=== PATIENT | female | born 1990 | race Caucasian/White ===

== ENCOUNTER 2020-04-22 18:44 | Emergency (ER) | payer MEDICAID ==
[2020-04-22] MEDS ORDERED: LORazepam 2 MG/ML SDV IVPUSH ONE ×3 (18:47→19:15)
[2020-04-22] MEDS ORDERED: Sodium Chloride 0.9% 1,000 ML IV ONE (18:48)
[2020-04-22] MEDS ORDERED: LORazepam 2 MG/ML SDV ONE ×2 (18:49→19:04)
--- NOTE | 2020-04-22 18:52 | EDM.PDOC ---
ED HPI GENERAL MEDICAL PROBLEM - General Stated Complaint: MEDICAL VIA [facility] Time Seen by Provider: 04/22/20 18:46 Source of Information: Reports: EMS History Limitations: Reports: Altered Mental Status - History of Present Illness INITIAL COMMENTS - FREE TEXT/NARRATIVE: Patient is brought by paramedics after her family reported witnessing generalized seizure activity today while they were vacationing in [facility]. They were out on a bicycle ride when the family noticed seizure activity. 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 She is on medication for seizures but we do not know what it is. Initially she was calm and composed but then became quite agitated and was given a total of 5 mg of midazolam IM approximately 1815 hrs. She is continued to have thrashing activity and nonsensical speech. Family is not here yet to provide additional history. Family member eventually arrived and the patient has been diagnosed with kellogg matter heterotopia. She is followed by [facility] in [place]. Medication list indicates that she is supposed to be taking 1500 mg of levetiracetam twice a day. Family members uncertain if she badillo s been taking meds. Onset: Today, Sudden - Related Data Allergies Allergy/AdvReac Type Severity Reaction Status Date / Time No Known Allergies Allergy Verified 04/22/20 18:49 Home Meds: Home Meds levETIRAcetam [Keppra Xr] 1,500 mg PO BID 04/22/20 [History] ED ROS GENERAL - Review of Systems Review Of Systems: Unable To Obtain Reason Not Obtained: Patient's agitated mental status and lack of corroborative family - Physical Exam Exam: See Below Exam Limited By: Altered Mental Status General Appearance: Moderate Distress Course - Vital Signs Last Recorded V/S: Last Vital Signs Temp 36.1 C 04/22/20 19:05 Pulse 75 04/22/20 22:55 Resp 17 04/22/20 22:55 BP 82/37 L 04/22/20 22:55 Pulse Ox 97 04/22/20 22:55 - Orders/Labs/Meds Labs: Laboratory Tests 04/22/20 04/22/20 04/22/20 Range/Units 19:14 19:14 20:28 WBC 14.0 H (4.5-11.0) K/uL RBC 4.33 (3.30-5.50) M/uL Hgb 12.9 (12.0-15.0) g/dL Hct 37.6 (36.0-48.0) % MCV 87 (80-98) fL MCH 30 (27-31) pg MCHC 34 (32-36) % Plt Count 212 (150-400) K/uL Neut % (Auto) 89 H (36-66) % Lymph % (Auto) 5 L (24-44) % Randolph % (Auto) 6 (2-6) % Eos % (Auto) 0 L (2-4) % Baso % (Auto) 0 (0-1) % Sodium 139 L (140-148) mmol/L Potassium 3.9 (3.6-5.2) mmol/L Chloride 105 (100-108) mmol/L Carbon Dioxide 25 (21-32) mmol/L Anion Gap 12.9 (5.0-14.0) mmol/L BUN 9 (7-18) mg/dL Creatinine 0.9 (0.6-1.0) mg/dL Est Cr Clr Drug Dosing 88.36 mL/min Estimated GFR (MDRD) > 60 (>60) Glucose 96 (74-106) mg/dL Calcium 7.9 L (8.5-10.1) mg/dL Total Bilirubin 0.4 (0.2-1.0) mg/dL AST 26 (15-37) U/L ALT 30 (12-78) U/L Alkaline Phosphatase 67 (46-116) U/L C-Reactive Protein 0.16 (0.0-0.3) mg/dL Total Protein 6.5 (6.4-8.2) g/dL Albumin 3.6 (3.4-5.0) g/dL Globulin 2.9 (2.3-3.5) g/dL Albumin/Globulin Ratio 1.2 (1.2-2.2) Urine Color Yellow (YELLOW) Urine Appearance Clear (CLEAR) Urine pH 5.5 (5.0-8.0) Ur Specific Willis 1.025 (1.008-1.030) Urine Protein 30 H (NEGATIVE) mg/dL Urine Glucose (UA) Negative (NEGATIVE) mg/dL Urine Ketones Negative (NEGATIVE) mg/dL Urine Occult Blood Small H (NEGATIVE) Urine Nitrite Negative (NEGATIVE) Urine Bilirubin Negative (NEGATIVE) Urine Urobilinogen 0.2 (0.2-1.0) EU/dL Ur Leukocyte Esterase Negative (NEGATIVE) Urine RBC 0-5 (0-5) Urine WBC 0-5 (0-5) Ur Epithelial Cells Few Amorphous Sediment Not seen Urine Bacteria Moderate Urine Mucus Not seen Urine Opiates Screen (NEGATIVE) Ur Oxycodone Screen (NEGATIVE) Urine Methadone Screen (NEGATIVE) Ur Propoxyphene Screen (NEGATIVE) Ur Barbiturates Screen (NEGATIVE) Ur Tricyclics Screen (NEGATIVE) Ur Phencyclidine Scrn (NEGATIVE) Ur Amphetamine Screen (NEGATIVE) U Methamphetamines Scrn (NEGATIVE) Urine MDMA Screen (NEGATIVE) U Benzodiazepines Scrn (NEGATIVE) U Cocaine Metab Screen (NEGATIVE) U Marijuana (THC) Screen (NEGATIVE) 04/22/20 Range/Units 20:28 WBC (4.5-11.0) K/uL RBC (3.30-5.50) M/uL Hgb (12.0-15.0) g/dL Hct (36.0-48.0) % MCV (80-98) fL MCH (27-31) pg MCHC (32-36) % Plt Count (150-400) K/uL Neut % (Auto) (36-66) % Lymph % (Auto) (24-44) % Randolph % (Auto) (2-6) % Eos % (Auto) (2-4) % Baso % (Auto) (0-1) % Sodium (140-148) mmol/L Potassium (3.6-5.2) mmol/L Chloride (100-108) mmol/L Carbon Dioxide (21-32) mmol/L Anion Gap (5.0-14.0) mmol/L BUN (7-18) mg/dL Creatinine (0.6-1.0) mg/dL Est Cr Clr Drug Dosing mL/min Estimated GFR (MDRD) (>60) Glucose (74-106) mg/dL Calcium (8.5-10.1) mg/dL Total Bilirubin (0.2-1.0) mg/dL AST (15-37) U/L ALT (12-78) U/L Alkaline Phosphatase (46-116) U/L C-Reactive Protein (0.0-0.3) mg/dL Total Protein (6.4-8.2) g/dL Albumin (3.4-5.0) g/dL Globulin (2.3-3.5) g/dL Albumin/Globulin Ratio (1.2-2.2) Urine Color (YELLOW) Urine Appearance (CLEAR) Urine pH (5.0-8.0) Ur Specific Willis (1.008-1.030) Urine Protein (NEGATIVE) mg/dL Urine Glucose (UA) (NEGATIVE) mg/dL Urine Ketones (NEGATIVE) mg/dL Urine Occult Blood (NEGATIVE) Urine Nitrite (NEGATIVE) Urine Bilirubin (NEGATIVE) Urine Urobilinogen (0.2-1.0) EU/dL Ur Leukocyte Esterase (NEGATIVE) Urine RBC (0-5) Urine WBC (0-5) Ur Epithelial Cells Amorphous Sediment Urine Bacteria Urine Mucus Urine Opiates Screen Negative (NEGATIVE) Ur Oxycodone Screen Negative (NEGATIVE) Urine Methadone Screen Negative (NEGATIVE) Ur Propoxyphene Screen Negative (NEGATIVE) Ur Barbiturates Screen Negative (NEGATIVE) Ur Tricyclics Screen Negative (NEGATIVE) Ur Phencyclidine Scrn Negative (NEGATIVE) Ur Amphetamine Screen Negative (NEGATIVE) U Methamphetamines Scrn Negative (NEGATIVE) Urine MDMA Screen Negative (NEGATIVE) U Benzodiazepines Scrn Presumptive positive H (NEGATIVE) U Cocaine Metab Screen Negative (NEGATIVE) U Marijuana (THC) Screen Negative (NEGATIVE) Meds: Medications Discontinued Medications Generic Name Dose Route Start Last Admin Trade Name Ambrose PRN Reason Stop Dose Admin Sodium Chloride 1,000 mls @ 999 mls/hr 04/22/20 18:48 04/22/20 18:53 Normal Saline IV 04/22/20 19:48 999 mls/hr .BOLUS ONE Administration Levetiracetam 1,500 mg/ Sodium 115 mls @ 400 mls/hr 04/22/20 19:24 04/22/20 19:44 Chloride IV 04/22/20 19:38 400 mls/hr ONETIME ONE Administration Lorazepam 1 mg 04/22/20 18:47 04/22/20 18:51 Ativan IVPUSH 04/22/20 18:48 1 mg ONETIME ONE Administration Lorazepam 1 mg 04/22/20 19:02 04/22/20 19:10 Ativan IVPUSH 04/22/20 19:03 1 mg ONETIME ONE Administration Lorazepam 1 mg 04/22/20 19:15 04/22/20 19:51 Ativan IVPUSH 04/22/20 19:16 1 mg ONETIME ONE Administration - Re-Assessments/Exams Free Text/Narrative Re-Assessment/Exam: She is still quite vigorous and fighting with staff. Soft restraints were applied to arms and legs. Lorazepam 1 mg IV will be given. 04/22/20 18:54 04/22/20 19:31 Patient received a total of 3 mg of lorazepam IV as separate 1 mg doses since arrival here. She continues to cry out and occasionally tried to sit up. There is a family member here who is familiar with her condition. When the patient was asked if she is taking medication, she said no but family member states that her memory is very short-term and she may not remember whether or not she has done activity or not. She is followed by neurology at [facility] in [place]. According to family notes, she is supposed to be taking 1500 mg of Keppra twice daily. I will give her a 1500 mg IV loading dose. I will contact them to see if we can get some additional guidance on her situation and specific condition. 04/22/20 19:33 04/22/20 20:47 204 7 hours, patient is now sleeping comfortably with no further thrashing about or seizure-like activity. Assuming nothing else happens, plan would be to discharge the patient to resume usual medications as prescribed, meaning levetiracetam twice a day. Nursing staff returned later to check on the patient and she was oriented and asking questions about other family members. 04/23/20 06:01 The patient had blood pressure in the 80s systolic range and received fluid boluses. Nursing staff gradually saw pressure increased into the 90s. Patient's father came and went from the room throughout her stay. When he returned again, I told him that once she was stable on her feet that we would be discharging her home. He does not know if she takes her levetiracetam regularly. Although we loaded her with 1500 mg, if it has been sometime since taking the medication, she probably should start at 500 twice daily and go up in dose every 5 or 6 days. She should contact [place] neurology next week to arrange a follow-up appointment. When awakened again, she was much more alert and her usual self per her father. She was assisted to his vehicle in a wheelchair but was back to her normal mental status and significantly more composed than her initial arrival. Departure - Departure Time of Disposition: 01:16 Disposition: Home, Self-Care 01 Clinical Impression: Seizure, Kellogg matter heterotopia - Discharge Information Instructions: Non-Epileptic Seizures, Adult, Seizure, Adult, [id number] Referrals: PCP,None [Primary Care Provider] - Forms: ED Department Discharge Additional Instructions: You will feel tired for the next 12 to 24 hours since her seizure. Records at [place] indicate that you should be taking 1500 mg twice a day of the levetiracetam. If you have not used any of that for a while, I would recommend starting with 500 mg twice a day over a 5-day period, then go to 1000 mg twice a day for the next 5-day stretch and finally increase to 1500 mg twice a day. Follow-up appointment with your neurology team would be advised. Return to ER if feeling worse in any way. Sepsis Event Note (ED) - Focused Exam Vital Signs: Vital Signs Temp Pulse Resp BP Pulse Ox 04/22/20 22:55 75 17 82/37 L 97 04/22/20 22:15 75 19 91/42 L 100 04/22/20 21:50 80 18 94/45 L 100 04/22/20 20:50 82 19 96/57 L 98 04/22/20 20:10 98 17 112/69 98 04/22/20 19:35 102 H 18 96/45 L 98 04/22/20 19:12 114 H 22 H 120/61 96 04/22/20 19:05 36.1 C 114 H 18 132/60 96 04/22/20 18:55 36.1 C 114 H 18 132/60 96
[2020-04-22] MEDS ORDERED: levETIRAcetam 1,500 MG in Sodium Chloride 0.9% 100 ML IV ONE (19:24)
--- NOTE | 2020-04-22 23:16 | CRLCT ---
INDICATION: Seizure, change in mental status TECHNIQUE: CT Head without i.v. contrast. 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 Brain: No evidence of mass, acute infarction or hemorrhage is seen. No mass-effect or midline shift is seen. Calvarium: The visualized paranasal sinuses are well aerated. The mastoid air cells are clear. The visualized orbits are grossly unremarkable. The calvarium is unremarkable in appearance with no fractures identified. IMPRESSIONS: 1. No evidence of acute infarction, intracranial hemorrhage, or mass-effect seen. 2. 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 This can be better assessed by MRI if clinically indicated. Dictated by Sunil Ellis MD @ 04/22/2020 11:14:55 PM Please note that all CT scans at this facility use dose modulation, iterative reconstruction, and/or weight-based dosing when appropriate to reduce radiation dose to as low as reasonably achievable. Dictated by: Sunil Ellis MD @ 04/22/2020 23:14:59 (Electronically Signed)
== END 2020-04-23 01:50 | disposition home or self-care (01) ==
LOC: JP.ED 18:44
DX: R56.9 Unspecified convulsions (principal); Q04.8 Other specified congenital malformations of brain; Z79.899 Other long term (current) drug therapy
CPT/HCPCS: 36415; 70450; 80053; 80305; 81001; 85025; 86140; 96361; 96365; 96375; 96376; 99285; J1953; J2060; J7030; J7050